=== PATIENT | male | born 1990 | race Caucasian/White ===

== ENCOUNTER 2023-12-27 00:38 | Emergency (ER) | payer BC, OTHER ==
[~2023-12-27] VITALS: Ht 177.8 cm; Wt 79.4 kg
[2023-12-27 00:46] VITALS: BP_SYST 121; PULSE 76; RESP 16; TEMP 98.8; O2SAT 96
[2023-12-27] MEDS: KETOROLAC TROMETHAMINE 60 MG/2 ML VIAL IM ONE (01:30)
[2023-12-27 01:46] VITALS: BP_SYST 114; PULSE 80; RESP 20; TEMP 98; O2SAT 97
== END 2023-12-27 01:47 | disposition home or self-care (01) ==
LOC: SED 00:38
DX: S46.092A Other injury of muscle(s) and tendon(s) of the rotator cuff of left shoulder, initial encounter (principal); W01.0XXA Fall on same level from slipping, tripping and stumbling without subsequent striking against object, initial encounter; Y93.89 Activity, other specified; Y92.89 Other specified places as the place of occurrence of the external cause; Y99.8 Other external cause status
CPT/HCPCS: 73030; 99283; J1885